=== PATIENT | male | born 1970 | race Caucasian/White ===

== ENCOUNTER 2016-11-18 09:25 | Emergency (ER) | payer BC ==
[~2016-11-18] VITALS: Ht 185.4 cm; Wt 164.5 kg
[~2016-11-18 09:25] MED LIST: CRESTOR 10MG10 MG PO; NORVASC 10MG10 MG; PREDNISONE20 MG; PRINZIDE 25 MG-1 TAB PO; ULORIC80 MG PO
[2016-11-18 09:30] VITALS: TEMP 97.3
[2016-11-18 10:05] LABS: BASO % 0.2 % (0.0-2.0); EOS % 0.2 % (0-4.0); GRAN # 7.1 (1.4-6.5); GRAN % 82.4 % (42.2-75.2); HEMOGLOBIN 16.2 g/dl (13.5-18.0); LYMPH % 11.2 % (20.0-51.0); MEAN CELL VOLUME 85 fl (80.0-100.0); MEAN CORPUSCULAR HEMOGLOBIN 29 pg (27.0-31.0); MEAN CORPUSCULAR HGB CONC 35 g/dl (33.0-37.0); MONO # 0.5 (0.1-0.6); MONO % 5.8 % (1.7-9.3); PLATELET COUNT 256 K/mm3 (130-400); RED BLOOD COUNT 5.51 M/mm3 (4.20-5.60); REDCELL DISTRIBUTION WIDTH-CV 13.1 % (11.5-14.5); WHITE BLOOD COUNT 8.6 K/mm3 (4.8-10.8)
[2016-11-18 10:16] LABS: ADJUSTED CALCIUM 8.8 mg/dL (8.4-10.2); ALBUMIN 4.5 gm/dL (3.5-5.0); BILIRUBIN,TOTAL 0.8 mg/dL (0.0-1.0); CALCIUM 9.2 mg/dL (8.4-10.2); CREATININE, serum 1.14 mg/dL (0.66-1.25); POTASSIUM 3.1 mmol/L (3.4-5.0); TOTAL PROTEIN 8.1 gm/dL (6.4-8.2)
[2016-11-18] MEDS ORDERED: VOLTAREN 75 DR75 MG PO (11:38)
[2016-11-18] MEDS ORDERED: ZOFRAN ODT4 MG PO (11:38)
[2016-11-18] MEDS ORDERED: NORCO 325 MG-51 TAB PO (11:38)
[2016-11-18 11:59] LABS: PH 5 (5-8); URINE APPEARANCE Clear; URINE BACTERIA Rare /hpf; URINE BILIRUBIN Negative (NEGATIVE); URINE BLOOD 1+ (NEGATIVE); URINE COLOR Amber; URINE GLUCOSE Negative (NEGATIVE); URINE KETONE Trace (NEGATIVE); URINE UROBILINOGEN >=4.0 mg/dL (NEGATIVE)
[2016-11-18] MEDS ORDERED: FLOMAX 0.40.4 MG/CAP PO (12:18)
[2016-11-18 13:23] VITALS: BP 163/98; PULSE 64
[2016-11-18] MEDS ORDERED: NORVASC 10MG10 MG PO (13:26)
[2016-11-18] MEDS ORDERED: PRINZIDE 25 MG-1 TAB PO (13:26)
== END 2016-11-18 13:23 | disposition home or self-care (01) ==
LOC: COL.ER 09:25
PROVIDERS: Emergency Medicine
DX: N13.2 Hydronephrosis with renal and ureteral calculous obstruction (principal); Z87.442 Personal history of urinary calculi; N39.0 Urinary tract infection, site not specified; I10 Essential (primary) hypertension
CPT/HCPCS: J0696; J1885; J2765; J3010; J7030